=== PATIENT | male | born 1980 | race Caucasian/White ===

== ENCOUNTER 2021-05-16 17:43 | Emergency (ER) | payer SELFPAY ==
[~2021-05-16] VITALS: Ht 177.8 cm; Wt 81.8 kg
[2021-05-16 18:03] VITALS: BP 129/63
--- NOTE | 2021-05-16 18:06 | PHYS DOC ---
Adult General Chief Complaint Chief Complaint: FOOT INJURY PAIN HPI HPI Patient is a 41-year-old male who presents with right ankle pain stating that he broke his ankle a couple weeks ago, went to [facility] and had a splint placed and was supposed to follow-up with orthopedic surgery but has not done so. States that he accidentally hit his leg on a door earlier today and is beginning to hurt again, 6 out of 10, dull and achy in nature and wants to make sure that it is not worse than before and wants contact information for the orthopedic surgeons to follow-up. Review of Systems Review of Systems Review of systems otherwise unremarkable except noted in HPI Physical Exam Physical Exam Constitutional: Well developed, well nourished, no acute distress, non-toxic appearance. [] HENT: Normocephalic, atraumatic, Abdomen: Bowel sounds normal, soft, no tenderness, no masses, no pulsatile masses. [] Skin: Warm, dry, no erythema, no rash. [] Back: No tenderness, Extremities: Tenderness and swelling about the right ankle, neurovascular exam intact, no obvious deformities Neurologic: Alert and oriented X 3, normal motor function, normal sensory function, no focal deficits noted. [] Psychologic: Affect normal, judgement normal, mood normal. [] EKG EKG [] Radiology/Procedures Radiology/Procedures [] Heart Score C/O Chest Pain: No Risk Factors: Risk Factors: DM, Current or recent (<one month) smoker, HTN, HLP, family history of CAD, obesity. Risk Scores: Risk Factors: DM, Current or recent (<one month) smoker, HTN, HLP, family history of CAD, obesity. Course & Med Decision Making Course & Med Decision Making Patient is a 41-year-old male who presents with right ankle pain after breaking his ankle 2 weeks ago and has not seen orthopedic surgery Vital signs not concerning. Physical exam noted above. Patient given ice pack, Tylenol and ibuprofen. Took old splint and placed in a new short leg splint. [] Dragon Disclaimer Dragon Disclaimer This electronic medical record was generated, in whole or in part, using a voice recognition dictation system. Departure Departure: Impression: Primary Impression: Fibula fracture Disposition: HOME / SELF CARE / HOMELESS Referrals: PCP,NO (PCP) LOGAN BOUCHER MD Patient Instructions: Fibular Fracture, Adult, Treated Without Immobilization, Splint Care-Brief Additional Instructions: Thank you for coming into the emergency department tonight and allowing us to take care of you. Please read all the attached information carefully to go back over some of the things that we discussed. Please begin a Tylenol, ibuprofen and ice regimen at home as we discussed. Please take your prescription pain medicines for breakthrough only. Please follow-up first thing Tuesday morning with the orthopedic surgeons at [facility], as they have your imaging already. Please call them at [phone] first thing Tuesday morning to set up a follow-up appointment. It is very important that she also follow-up with a primary care physician locally. You can try [place] [facility] or [facility] as well. Please be sure to keep your splint on, and maintain it as your instructions say. Please try not to walk on it unless absolutely necessary and if so use your crutches/walker. Please come back with new or concerning symptoms as we discussed. FILEMON PACHECO MD May 16, 2021 18:06
[2021-05-16] MEDS ORDERED: ACETAMINOPHEN 500 MG TABLET PO ONE (19:30)
[2021-05-16] MEDS ORDERED: ACETAMINOPHEN/CODEINE 300/30MG 4TABLET STARTPACK. PO ONE (19:30)
[2021-05-16] MEDS ORDERED: IBUPROFEN 600 MG TABLET. PO ONE (19:30)
[2021-05-16] MEDS ORDERED: oxyCODONE IR 5 MG TABLET PO PRN (19:30)
--- NOTE | 2021-05-16 20:28 | RAD ---
EXAMINATION: Right tibia fibula and right ankle radiograph. VIEWS: 2 views of the right tibia and 3 views of the right ankle COMPARISON: None INDICATION:41 years, Male, fall, history of fracture. FINDINGS: Tibia-fibula: Overlying cast obscures bony detail. There is a obliquely oriented mildly displaced fra cture of the distal fibula no acute fracture or dislocation of the tibia. Normal alignment is preserv ed at the knee. Foot: No evidence of fracture or dislocation. Joint spaces are preserved without significant degenera tive changes. Soft tissues are grossly unremarkable. IMPRESSION: 1. Mildly displaced distal fibular fracture. 2. No evidence of acute fracture or dislocation of the foot. Electronically signed by: Addison Hernandez DO (05/16/2021 8:25 PM) [facility]
== END 2021-05-16 20:07 | disposition home or self-care (01) ==
LOC: ER 17:43
DX: S82.831A Other fracture of upper and lower end of right fibula, initial encounter for closed fracture (principal); W22.8XXA Striking against or struck by other objects, initial encounter; Y93.89 Activity, other specified; Y92.89 Other specified places as the place of occurrence of the external cause; Y99.8 Other external cause status
CPT/HCPCS: 29515; 73590; 73610; 99284

== ENCOUNTER 2021-06-21 22:01 | Emergency (ER) | payer OTHER ==
[~2021-06-21] VITALS: Ht 177.8 cm; Wt 75.9 kg
--- NOTE | 2021-06-21 22:30 | PHYS DOC ---
Past History Past Surgical History: Other Additional Past Surgical Histo: hernia sx General Adult EDM: Chief Complaint: testicle pain HPI: HPI: 41-year-old male presents with right testicle pain. The patient states that the pain and swelling started today. The swelling came first and the pain is gotten much worse tonight. He rates it as severe. He denies any trauma. Review of Systems: Review of Systems: Constitutional: Denies fever or chills Eyes: Denies change in visual acuity HENT: Denies nasal congestion or sore throat Respiratory: Denies cough or shortness of breath Cardiovascular: Denies chest pain or edema GI: Denies abdominal pain, nausea, vomiting, bloody stools or diarrhea : Swollen right testicle Musculoskeletal: Denies back pain or joint pain Integument: Denies rash Neurologic: Denies headache, focal weakness or sensory changes Endocrine: Denies polyuria or polydipsia Lymphatic: Denies swollen glands Psychiatric: Denies depression or anxiety Allergies: Allergies: Allergies Coded Allergies Type Severity Reaction Last Updated Verified No Known Drug Allergies 05/16/21 No Physical Exam: PE: Constitutional: Well developed, well nourished, no acute distress, non-toxic appearance. [] HENT: Normocephalic, atraumatic, bilateral external ears normal, oropharynx moist, no oral exudates, nose normal. [] Eyes: PERRLA, EOMI, conjunctiva normal, no discharge. [] Neck: Normal range of motion, no tenderness, supple, no stridor. [] Cardiovascular:Heart rate regular rhythm, no murmur [] Lungs & Thorax: Bilateral breath sounds clear to auscultation [] Abdomen: Bowel sounds normal, soft, no tenderness, no masses, no pulsatile masses. [] Skin: Warm, dry, no erythema, no rash. Many tattoos. [] Back: No tenderness, no CVA tenderness. [] Extremities: No tenderness, no cyanosis, no clubbing, ROM intact, no edema. [] Neurologic: Alert and oriented X 3, normal motor function, normal sensory function, no focal deficits noted. [] Psychologic: Affect normal, judgement normal, mood normal. : Swollen and tender right testicle compared to left. No obvious rash or lesions. [] EKG: EKG: [] Radiology/Procedures: Radiology/Procedures: [] Heart Score: C/O Chest Pain: N/A Risk Factors: Risk Factors: DM, Current or recent (<one month) smoker, HTN, HLP, family history of CAD, obesity. Risk Scores: Score 0 - 3: 2.5% MACE over next 6 weeks - Discharge Home Score 4 - 6: 20.3% MACE over next 6 weeks - Admit for Clinical Observation Score 7 - 10: 72.7% MACE over next 6 weeks - Early Invasive Strategies Course & Med Decision Making: Course & Med Decision Making Pertinent Labs and Imaging studies reviewed. (See chart for details) The patient's ultrasound is negative for torsion. He appears to have epididymitis. I will treat him with Rocephin and doxycycline in the ED. I will discharge him with a prescription for doxycycline for 10 days. He is stable for discharge at this time. [] Dragon Disclaimer: Dragon Disclaimer: This electronic medical record was generated, in whole or in part, using a voice recognition dictation system. Departure Departure: Impression: Primary Impression: Acute epididymitis Disposition: HOME / SELF CARE / HOMELESS Condition: STABLE Referrals: PCP,JOSE (PCP) Patient Instructions: Epididymitis Scripts Doxycycline Hyclate (DOXYCYCLINE HYCLATE) 100 Mg Capsule 1 CAP PO BID for epididymitis for 10 Days, #20 CAP Prov: MARQUITA AVILA DO 06/21/21 MARQUITA AVILA DO Jun 21, 2021 22:30
[2021-06-21] MEDS ORDERED: IV NORMAL SALINE 1,000ML 1,000 ML IV ONE (23:00)
[2021-06-21] MEDS ORDERED: MORPHINE SULFATE 4 MG/ML DISP.SYRIN. IV ONE (23:00)
[2021-06-21] MEDS ORDERED: ONDANSETRON PF 4 MG/2 ML VIAL. IVP ONE (23:00)
[2021-06-21 23:12] LABS: BASO % 1 % (0-3); EOS # 0.1 x10^3/uL (0.0-0.7); EOS % 2 % (0-3); HEMATOCRIT 38.1 % (39.0-53.0); HEMOGLOBIN 12.9 g/dL (13.0-17.5); LYMPH % 19 % (24-48); MEAN CORPUSCULAR HEMOGLOBIN 29 pg (25-35); MEAN CORPUSCULAR HGB CONC 34 g/dL (31-37); MEAN CORPUSCULAR VOLUME 85 fL (79-100); MONO # 0.4 x10^3/uL (0.0-1.1); MONO % 9 % (0-9); NEUT # 3.5 x10^3uL (1.8-7.7); NEUT % 69 % (31-73); PLATELET COUNT 136 x10^3/uL (140-400); RED BLOOD COUNT 4.46 x10^6/uL (4.30-5.70); RED CELL DISTRIBUTION WIDTH 12.9 % (11.5-14.5)
[2021-06-21 23:21] LABS: COLOR,URINE AMBER
[2021-06-21 23:22] LABS: BACTERIA,URINE MOD /HPF (0-FEW); BILIRUBIN,URINE SMALL (NEG); CLARITY,URINE CLOUDY; GLUCOSE,URINE NEG (NEG); NITRITE,URINE NEG (NEG); SQUAMOUS EPITHELIAL CELL,UR MOD /LPF
[2021-06-21 23:24] LABS: CALCIUM 7.9 mg/dL (8.5-10.1); CREATININE 0.9 mg/dL (0.7-1.3); POTASSIUM 4.1 mmol/L (3.5-5.1)
[2021-06-21 23:30] LABS: ALBUMIN 3.6 g/dL (3.4-5.0); ALBUMIN/GLOBULIN RATIO 1.1 (1.0-1.7); TOTAL BILIRUBIN 0.2 mg/dL (0.2-1.0); TOTAL PROTEIN 6.9 g/dL (6.4-8.2)
[2021-06-21] MEDS ORDERED: DOXY100C3 PO (23:42)
[2021-06-21 23:58] VITALS: BP 132/78
[2021-06-22] MEDS ORDERED: DOXYCYCLINE HYCLATE 100 MG TABLET PO ONE
[2021-06-22] MEDS ORDERED: cefTRIAXone IM 500 MG VIAL. IM ONE (00:15)
--- NOTE | 2021-06-22 00:37 | RAD ---
CLINICAL HISTORY: Reason: swollen right testicle / Spl. Instructions: / History: COMPARISON: None available. TECHNIQUE: Ultrasound images of the scrotum was performed with morel-scale and color doppler. FINDINGS: The right testis measures 4.9 x 3.4 x 2.9 cm. The left testis measures 4.5 x 2.9 x 2.3 cm. Homogenous testicular echotexture. There is no intratesticular abnormality. Testicular vascularity is symmetric and within normal limits. Asymmetric enlargement and hypervascularity of the right epididymal tail. The left epididymis is is n ormal in appearance. There is no varicocele. Small bilateral hydroceles. IMPRESSION: Increased flow and enlargement of the right epididymal tail may be seen with epididymitis. Small hydroceles bilaterally. Electronically signed by: Alf Givens MD (06/22/2021 12:34 AM) [facility]
== END 2021-06-22 00:03 | disposition home or self-care (01) ==
LOC: ER 22:01
DX: N45.1 Epididymitis (principal)
CPT/HCPCS: 36415; 76870; 80053; 81001; 85025; 87086; 96360; 96372; 99284; J0696; J7030

== ENCOUNTER → 2021-07-31 | Outpatient (CLI) | payer OTHER, MEDICAID ==
[~2021-07-31] MED LIST: DOXY100C3 PO
--- NOTE | 2021-07-31 16:32 | RAD ---
EXAM: Right ankle, 3 views. HISTORY: Fracture follow-up. COMPARISON: 05/16/2021 FINDINGS: 3 views of the right ankle are obtained. There is callus formation surrounding a minimally displaced distal fibular metaphyseal fracture. There is linear osseous excrescence along the lateral aspect of the distal tibia associated with the interosseous ligament. There is a tiny corticated ossi sunil inferior to the medial malleolus, likely due to a chronic avulsion fracture fragment. There is so ft tissue edema. The ankle mortise intact. There is no osteochondral lesion. IMPRESSION: 1. Slight interval healing of a distal fibular metaphyseal fracture. 2. Soft tissue edema. 3. Tiny chronic ossicle inferior to the medial malleolus. Electronically signed by: Julia Bowens MD (07/31/2021 4:30 PM) [id number]
== END ==
LOC: RAD 15:14
PROVIDERS: ATTEND Physician Assistant
DX: S82.831D Other fracture of upper and lower end of right fibula, subsequent encounter for closed fracture with routine healing (principal); M79.89 Other specified soft tissue disorders; Z87.828 Personal history of other (healed) physical injury and trauma; X58.XXXD Exposure to other specified factors, subsequent encounter
CPT/HCPCS: 73610